=== PATIENT | male | born 1975 | race Caucasian/White ===

== ENCOUNTER 2019-11-30 13:03 | Emergency (ER) | payer OTHER ==
[~2019-11-30] VITALS: Ht 177.8 cm; Wt 77.6 kg
[2019-11-30 13:36] LABS: URINE BLOOD NEGATIVE (Negative); URINE CLARITY CLEAR; URINE COLOR YELLOW; URINE GLUCOSE-RANDOM NEGATIVE (Negative); URINE KETONES NEGATIVE (Negative); URINE LEUKOCYTES-REFLEX NEGATIVE (Negative); URINE NITRITE-REFLEX NEGATIVE (Negative); URINE PROTEIN 1+ (Negative); URINE SPECIFIC GRAVITY >= 1.030 (1.005-1.030); URINE UROBILINOGEN 0.2 E.U./dl (0.2-1.0)
[2019-11-30 13:37] LABS: URINE BILIRUBIN 1+ (Negative)
[2019-11-30 13:38] LABS: ICTOTEST (BILI CONFIRMATORY) Negative (Negative)
[2019-11-30 13:47] LABS: AMP/METHAMP POSITIVE (Negative); BARBITURATES Negative (Negative); BENZODIAZEPINES Negative (Negative); COCAINE Negative (Negative); METHADONE Negative (Negative); OPIATES Negative (Negative); PCP Negative (Negative); THC POSITIVE (Negative)
[2019-11-30 13:51] LABS: HEMATOCRIT 46.1 % (42.0-52.0); HEMOGLOBIN 16.3 gm/dL (14.0-18.0); MCH 29.7 pg (26.0-34.0); MCHC 35.3 g/dL (28.0-37.0); MCV 84.1 fL (80.0-100.0); NUCLEATED RBCS 0 /100WBC; PLATELET COUNT* 134 thou/uL (150-400); RBC 5.48 mil/uL (4.50-6.00); RDW-CV 14.1 % (10.5-14.5); WBC 4.3 thou/uL (4.0-11.0)
[2019-11-30 14:05] LABS: CALCIUM 8.5 mg/dL (8.5-10.1); POTASSIUM 3.6 mmol/L (3.5-5.1)
[2019-11-30 14:10] LABS: ALBUMIN 3.6 g/dL (3.4-5.0); TOTAL BILIRUBIN 0.3 mg/dL (<0.1-1.0); TOTAL PROTEIN 7.6 g/dL (6.4-8.2)
[2019-11-30 14:12] LABS: APTT 29.3 Seconds (25.0-31.3); INR 1.1; PROTIME 11.3 Seconds (9.20-11.50)
[2019-11-30 14:14] LABS: ACETAMINOPHEN < 2 ug/mL (10-30); ALCOHOL < 10 mg/dL (<10); SALICYLATE < 2.8 mg/dL (2.8-20.0)
[2019-11-30 14:29] LABS: ABSOLUTE LYMPHOCYTES 1.8 thou/uL (0.8-5.3); ABSOLUTE MONOCYTES 0.8 thou/uL (0.0-1.2); ABSOLUTE NEUTROPHILS 1.7 thou/uL (1.6-8.1); ATYPICAL LYMPHS 6 %
[2019-11-30 14:30] LABS: PLATELET ESTIMATE DECREASED
[2019-11-30 14:31] LABS: MICROCYTES 2+
[2019-11-30] MEDS ORDERED: ONDANSETRON HCL4 M2 PO (15:59)
[2019-11-30] MEDS ORDERED: OMEPRAZOLE 20 M20 M1 PO (15:59)
[2019-11-30 16:06] VITALS: BP 122/83
[2019-11-30] MEDS ORDERED: CARAFATE1 GM/10 ML PO (16:09)
--- NOTE | 2019-11-30 17:15 | EKG ---
[place] [address] ELECTROCARDIOGRAM REPORT Name: THANH NIXON Room: [facility]#: [id number] Admission: 11/30/19 Attend Phys: Discharge: 11/30/19 Date of : 79 Date of Service: 11/30/19 1402 Report #: [id number] THIS REPORT FOR: //name// [facility] ED Test Date: 2019-11-30 Test Time: 14:02:18 Pat Name: THANH NIXON Department: Room: Gender: Coach Operator: NICK : [id number] Requested By: Nicolasa Culver Order Number: [id number] MD: Anselmo Arcos Measurements Intervals [place] Rate: 99 P: -1 WV: 166 QRS: 45 QRSD: 91 T: 61 QT: 335 QTc: 430 Interpretive Statements Sinus rhythm Probable left atrial enlargement Compared to ECG 10/31/2015 14:56:33 ST (T wave) deviation no longer present Early repolarization no longer present Electronically Signed On 11-30-2019 17:14:55 CDT by Anselmo Arcos [email or web address] <ELECTRONICALLY SIGNED> By: Anselmo Arcos MD, [facility] 11/30/19 1714 1402 1402 Anselmo Arcos MD, [facility] /EPI
== END 2019-11-30 16:07 | disposition home or self-care (01) ==
LOC: M.ERS 13:03
PROVIDERS: Nurse Practitioner Family
DX: R10.13 Epigastric pain (principal); R10.11 Right upper quadrant pain; R11.10 Vomiting, unspecified; F17.200 Nicotine dependence, unspecified, uncomplicated